=== PATIENT | male | born 1950 | race Caucasian/White ===

== ENCOUNTER 2016-09-22 13:40 | Inpatient (IN) | payer OTHER ==
[~2016-09-22] VITALS: Ht 175.3 cm; Wt 75.6 kg
--- NOTE | ~2016-09-22 | H ---
[facility] [place] [place] [address] HISTORY AND PHYSICAL Name: SANJAY MAN Room #: 212-P [facility] IN ..#: [id number] Admission: 09/22/16 Attend Phys: Timmy Parrish MD Discharge: 09/24/16 Date of : 50 Report #: [id number] THIS REPORT FOR: //name// CC: Dominique Parrish DATE OF SERVICE: 09/22/2016 REASON FOR ADMISSION: RV lead dislodgement. HISTORY OF PRESENT ILLNESS: This is a patient who underwent a dual chamber pacemaker implantation 2 days ago with a [employer] collar pointer. Yesterday, he was discharged after his device was found to be functioning normally. Last night, the patient felt somewhat lightheaded and he sent in a remote transmission which showed a decrease in the R waves on the RV lead suggested that there may have been a possible dislodgement. I brought him to my clinic and I checked the device and the threshold was very high suggested that somehow the lead had dislodged. PAST MEDICAL HISTORY: 1. History of carotid artery disease status post carotid endarterectomy. 2. Carotid hypersensitivity syndrome. 3. Mobitz II second degree heart block status post [employer]ume dual chamber pacemaker implantation 2 days ago. SOCIAL HISTORY: Does not smoke. FAMILY HISTORY: Noncontributory. ALLERGIES: None. MEDICATIONS: Have been reviewed. PHYSICAL EXAMINATION: VITAL SIGNS: Stable. GENERAL: He was in no acute distress. HEENT: Oropharynx is clear. NECK: Supple, no thyromegaly. HEART: Regular rate and rhythm with no murmurs, rubs, gallops. LUNGS: Clear to auscultation bilaterally. ABDOMEN: Soft, nontender, nondistended, no hepatosplenomegaly. EXTREMITIES: No clubbing, cyanosis, edema. His device interrogation revealed that he has loss of RV capture at a threshold of around 5 volts at 1.5 milliseconds[address] [facility] [address] [place] [address] HISTORY AND PHYSICAL Name: SANJAY MAN Room #: [facility].#: [id number] Admission: 09/22/16 Attend Phys: Timmy Parrish MD Discharge: 09/24/16 Date of : 50 Report #: [id number] ASSESSMENT AND PLAN: In summary, the patient is a gentleman status post recent pacemaker implantation. It appears that his RV lead has dislodged. As such, we will take him back to the EP laboratory to perform an RV lead revision. We discussed the details of the procedure including the risks, which include but not limited to bleeding, infection as well as vascular damage. I discussed that I would like to monitor him overnight and have him get some IV antibiotics. I did discuss I will put an antibiotic pouch in the pocket to prevent infections. If everything is okay, he can be discharged tomorrow. <ELECTRONICALLY SIGNED> By: Timmy Parrish MD 09/29/16 1348 [id number] 1715 Timmy Parrish MD /starr
--- NOTE | ~2016-09-22 | P ---
[facility] [place] [address] PROCEDURE REPORT Name: SANJAY MAN Room #: 212-P [facility] IN .R.#: [id number] Admission: 09/22/16 Attend Phys: Timmy Parrish MD Discharge: 09/24/16 Date of : 50 Report #: [id number] THIS REPORT FOR: //name// CC: Dominique Parrish PREOPERATIVE DIAGNOSIS: Right ventricular lead dislodgement. POSTOPERATIVE DIAGNOSIS: Right ventricular lead dislodgement. HISTORY: The patient is a 65-year-old status post pacemaker implantation for AV block who was noted on remote monitoring to have diminishment of his R waves. We had him come in to clinic and we saw that his threshold had risen and his R waves were significantly decreased. It appeared that he likely had a micro dislodgement of his RV lead. He is here for lead revision. ANESTHESIA: The patient underwent MAC anesthesia with no anesthesia related complications. DESCRIPTION OF PROCEDURE: The patient underwent informed consent. We discussed the details of the procedure including the risks, which include but not limited to bleeding, infection. He understood these risks and is willing to proceed. As such, he was brought to the EP laboratory in a fasting and sedated state, prepped and draped in a sterile fashion and received IV antibiotics. Next, I injected 10 mL of lidocaine at the prior incision site. The incision was opened and I removed all the prior sutures. I then disconnected the RV lead from the pacemaker and removed the sutures in suture sleeve and then placed a guidewire down the week. I then retracted the screw and then repositioned the lead. I at this time left a good amount of slack in the lead. I then sutured the lead to the prepectoral fascia. The R waves were greater than 12 with a pacing threshold of 0.5 volts at 0.4 milliseconds with pacing impedance of 630 ohms. The atrial lead pacing characteristics were stable. The pocket was then irrigated with vancomycin solution and a Medtronic antibiotic pouch was placed in the pocket to prevent infection given the reopening of the pocket. The pocket was then closed in 3 layers using 2-0 for the deep layer, 3-0 for the mid layer and 4-0 for the subcuticular layer. The patient awoke neurologically and hemodynamically intact with no complications. CONCLUSIONS: 1. Successful right ventricular lead revision with adequate pacing and sensing thresholds. 2. Implantation of a Medtronic antibiotic pouch in the pocket. [facility] [address] [place] [address] PROCEDURE REPORT Name: SANJAY MAN Room #: 212-P [facility] IN .R.#: [id number] Admission: 09/22/16 Attend Phys: Timmy Parrish MD Discharge: 09/24/16 Date of : 50 Report #: [id number] RECOMMENDATIONS: We will monitor the patient overnight and recheck thresholds in the morning. He will receive IV antibiotics overnight as well. <ELECTRONICALLY SIGNED> By: Timmy Parrish MD 10/02/16 1227 [id number] 1851 Timmy Parrish MD /nt
--- NOTE | ~2016-09-22 | D ---
[facility] [place] [address] DISCHARGE SUMMARY Name: SANJAY MAN Room #: 212-P [facility] IN .R.#: [id number] Admission: 09/22/16 Attend Phys: Timmy Parrish MD Discharge: 09/24/16 Date of : 50 Report #: [id number] THIS REPORT FOR: //name// CC: Dominique Parrish DATE OF SERVICE: 09/24/2016 ADMITTING DIAGNOSIS: Lead dislodgement. DISCHARGE DIAGNOSES: 1. Lead dislodgement. 2. Second-degree atrioventricular block. PROCEDURE PERFORMED: Repositioning of the right ventricular lead. DISCHARGE MEDICATIONS: Home medications. FOLLOWUP: Dr. Parrish on Sunday. DISCHARGE DIET: Heart healthy. BRIEF CLINICAL HISTORY: See history and physical on chart. HOSPITAL COURSE: The patient was admitted to the hospital and went back to the cardiac catheterization laboratory where the lead was repositioned under fluoroscopic guidance by Dr. Parrish. Postprocedure, the patient did quite well, but developed a yellow sputum and a cough. He was started on aztreonam which he tolerated well. He was observed 1 more day with improvement and symptomatology and feeling much better. Allowed to ambulate without limitations except for the left arm which was in an arm immobilizer secondary to the lead placement. Discharge instructions were given. The patient had subsequently been discharged in stable and improved condition, to follow up with the previously stated medications and appointments. <ELECTRONICALLY SIGNED> By: Tera Wright MD 09/24/16 2329 1638 49 Tera Wright MD /nt
[~2016-09-22 13:40] MED LIST: ASPIRIN325 PO; FISH OIL 1,001000 M2 PO; NAPROSYN500 MG PO; NEURONTIN 300300 M1 PO; NORVASC5 MG PO; ZOCOR20 MG PO
[2016-09-22 14:59] VITALS: BP 146/104
[2016-09-22 17:27] VITALS: BP 137/84
[2016-09-22 19:28] VITALS: BP 117/71
[2016-09-22 23:16] VITALS: BP 93/62
[2016-09-23 04:05] VITALS: BP 109/65
[2016-09-23 07:35] LABS: HEMATOCRIT 34.9 % (42.0-52.0); HEMOGLOBIN 11.9 gm/dL (14.0-18.0); MCH 29.9 pg (26.0-34.0); MCHC 34.1 % (28.0-37.0); MCV 87.6 fL (80.0-100.0); RBC 3.98 mil/uL (4.50-6.00); RDW 15.7 % (10.5-14.5); WBC 8.8 thou/uL (4.0-11.0)
[2016-09-23 07:41] VITALS: BP 109/65
[2016-09-23 07:45] LABS: CALCIUM 8.9 mg/dL (8.5-10.1); POTASSIUM 3.9 mmol/L (3.5-5.1)
[2016-09-23 08:11] VITALS: BP 120/81
[2016-09-23 12:25] VITALS: BP 121/82
[2016-09-23 20:00] VITALS: BP 130/81
[2016-09-24 05:32] VITALS: BP 146/93
[2016-09-24 07:15] VITALS: BP 109/65
[2016-09-24 08:31] VITALS: BP 129/85
[2016-09-24 11:51] VITALS: BP 135/86
[2016-09-24 14:42] VITALS: BP 135/86
== END 2016-09-24 14:57 | disposition home or self-care (01) | DRG 261 ==
LOC: 2N 13:40
PROVIDERS: Internal Medicine Cardiovascular Disease
PROC: 02WA3MZ Revision of Cardiac Lead in Heart, Percutaneous Approach (ICD-10-PCS; principal; 2016-09-24)
DX: I44.1 Atrioventricular block, second degree (principal); T82.120A Displacement of cardiac electrode, initial encounter; I25.10 Atherosclerotic heart disease of native coronary artery without angina pectoris; Z98.890 Other specified postprocedural states; Z95.0 Presence of cardiac pacemaker
CPT/HCPCS: 10081; 62110; 62900; 70005

== ENCOUNTER → 2020-06-08 | Outpatient (CLI) | payer OTHER | LOC: SJCVCIMAG 07:15 | PROVIDERS: ATTEND Internal Medicine Cardiovascular Disease | DX: Z45.018 Encounter for adjustment and management of other part of cardiac pacemaker (principal); I44.4 Left anterior fascicular block; I44.0 Atrioventricular block, first degree; R94.31 Abnormal electrocardiogram [ECG] [EKG]; I47.2 Ventricular tachycardia; I49.5 Sick sinus syndrome; R55 Syncope and collapse; I10 Essential (primary) hypertension; E78.00 Pure hypercholesterolemia, unspecified; Z79.82 Long term (current) use of aspirin; Z82.49 Family history of ischemic heart disease and other diseases of the circulatory system; Z79.899 Other long term (current) drug therapy; Z87.891 Personal history of nicotine dependence ==

== ENCOUNTER → 2020-06-24 | Outpatient (CLI) | payer OTHER | LOC: SJCVCIMAG 07:51 | PROVIDERS: ATTEND Internal Medicine Cardiovascular Disease | DX: Z45.018 Encounter for adjustment and management of other part of cardiac pacemaker (principal); I44.0 Atrioventricular block, first degree; I49.3 Ventricular premature depolarization; I49.5 Sick sinus syndrome; E78.00 Pure hypercholesterolemia, unspecified; I47.2 Ventricular tachycardia; I25.10 Atherosclerotic heart disease of native coronary artery without angina pectoris; I65.23 Occlusion and stenosis of bilateral carotid arteries; Z79.899 Other long term (current) drug therapy; Z87.891 Personal history of nicotine dependence ==

== ENCOUNTER 2020-09-27 10:15 | Emergency (ER) | payer OTHER ==
[~2020-09-27] VITALS: Ht 172.7 cm; Wt 79.4 kg
[2020-09-27] MEDS ORDERED: LIPITOR10 MG PO (10:27)
[2020-09-27 11:55] VITALS: BP 132/77
== END 2020-09-27 11:55 | disposition home or self-care (01) ==
LOC: ER 10:15
DX: M25.521 Pain in right elbow (principal); G89.29 Other chronic pain; M54.9 Dorsalgia, unspecified; I10 Essential (primary) hypertension; E78.5 Hyperlipidemia, unspecified; F17.210 Nicotine dependence, cigarettes, uncomplicated; Z79.82 Long term (current) use of aspirin; Z79.899 Other long term (current) drug therapy; W17.89XA Other fall from one level to another, initial encounter; Y93.89 Activity, other specified; Y92.89 Other specified places as the place of occurrence of the external cause; Y99.8 Other external cause status

== ENCOUNTER → 2021-07-01 | Outpatient (CLI) | payer OTHER ==
[~2021-07-01] MED LIST changes: +LIPITOR10 MG PO
== END ==
LOC: SJCVCIMAG 07:51
PROVIDERS: ATTEND Internal Medicine Cardiovascular Disease
DX: I65.23 Occlusion and stenosis of bilateral carotid arteries (principal); I25.10 Atherosclerotic heart disease of native coronary artery without angina pectoris; I49.5 Sick sinus syndrome; E78.5 Hyperlipidemia, unspecified; E78.00 Pure hypercholesterolemia, unspecified; I45.9 Conduction disorder, unspecified; I10 Essential (primary) hypertension; Z95.0 Presence of cardiac pacemaker; Z79.82 Long term (current) use of aspirin; Z79.899 Other long term (current) drug therapy; Z87.891 Personal history of nicotine dependence; Z72.89 Other problems related to lifestyle

== ENCOUNTER → 2021-09-05 | Outpatient (CLI) | payer OTHER | LOC: CAT 08:50 | PROVIDERS: ATTEND Family Medicine | DX: M54.41 Lumbago with sciatica, right side (principal); M48.07 Spinal stenosis, lumbosacral region; G89.29 Other chronic pain ==

== ENCOUNTER → 2021-09-29 | Outpatient (CLI) | payer OTHER ==
[~2021-09-29] VITALS: Ht 175.3 cm; Wt 78.9 kg
[~2021-09-29] MED LIST changes: +PERCOCET 7.5-31 EAC1 PO
[2021-09-29 10:48] VITALS: BP 137/84
--- NOTE | 2021-09-29 11:16 | NUR ---
Pain Clinic Assessment: 1. History of Osteoarthritis: History of Rheumatoid Arthritis: 2. Height: 5 ft. 9 in. 175.3 cm. Weight: 174.0 lb. oz. 78.926 kg. Patient's BMI: 25.7 3. Vital Signs: BP: 137/84 Pulse: 72 Resp: 18 Temp: 02 Sat: 100 ECG Mon: 4. Pain Intensity: 2 5. Fall Risk: Dizziness: N Needs help standing or walking: N Fallen in the last 3 months: N Fall risk comments: 6. Patient on Blood Thinner: None 7. History of Hypertension: Y 8. Opioid Therapy greater than 6 weeks: N Opiate Contract Signed: 9. Risk Assessment Tool Provided: 10. Functional Assessment Tool: 11. Recreational Drug Use: Past greater than 3 mos Drug Type: Tobacco Use: Former Smoker Tobacco Type: Amount or Packs/day: How Many Years: Alcohol Use: Yes Frequency: Weekly Quant: 3-4 DRINKS WEEKLY
== END ==
LOC: PAIN 09:06
PROVIDERS: ATTEND Anesthesiology Pain Medicine
DX: M47.26 Other spondylosis with radiculopathy, lumbar region (principal); M48.061 Spinal stenosis, lumbar region without neurogenic claudication; I10 Essential (primary) hypertension; Z87.891 Personal history of nicotine dependence; Z95.0 Presence of cardiac pacemaker

== ENCOUNTER → 2021-10-06 | Outpatient (CLI) | payer OTHER ==
[~2021-10-06] VITALS: Ht 175.3 cm; Wt 80.0 kg
[2021-10-06 14:27] VITALS: BP 129/74
--- NOTE | 2021-10-06 14:37 | NUR ---
Pain Clinic Assessment: 1. History of Osteoarthritis: History of Rheumatoid Arthritis: 2. Height: 5 ft. 9 in. 175.3 cm. Weight: 176.4 lb. oz. 80.015 kg. Patient's BMI: 26.0 3. Vital Signs: BP: 129/74 Pulse: 83 Resp: 14 Temp: 02 Sat: 100 ECG Mon: 4. Pain Intensity: 0 5. Fall Risk: Dizziness: N Needs help standing or walking: N Fallen in the last 3 months: N Fall risk comments: 6. Patient on Blood Thinner: None 7. History of Hypertension: Y 8. Opioid Therapy greater than 6 weeks: N Opiate Contract Signed: 9. Risk Assessment Tool Provided: 10. Functional Assessment Tool: 11. Recreational Drug Use: Past greater than 3 mos Drug Type: Tobacco Use: Current Every Day Smoker Tobacco Type: Cigarettes Amount or Packs/day: 4 ciggs How Many Years: Alcohol Use: Yes Frequency: Special Occasions Quant: 1
== END | disposition home or self-care (01) ==
LOC: PAIN 10:33
PROVIDERS: ATTEND Anesthesiology Pain Medicine
DX: M54.16 Radiculopathy, lumbar region (principal); G89.29 Other chronic pain; F17.210 Nicotine dependence, cigarettes, uncomplicated; Z98.890 Other specified postprocedural states; Z79.899 Other long term (current) drug therapy

== ENCOUNTER → 2021-10-31 | Outpatient (CLI) | payer OTHER ==
[~2021-10-31] VITALS: Ht 175.3 cm; Wt 80.2 kg
[2021-10-31 09:22] VITALS: BP 136/84
--- NOTE | 2021-10-31 09:33 | NUR ---
Pain Clinic Assessment: 1. History of Osteoarthritis: History of Rheumatoid Arthritis: 2. Height: 5 ft. 9 in. 175.3 cm. Weight: 176.8 lb. oz. 80.196 kg. Patient's BMI: 26.1 3. Vital Signs: BP: 136/84 Pulse: 73 Resp: 20 Temp: 02 Sat: 99 ECG Mon: 4. Pain Intensity: 0 5. Fall Risk: Dizziness: N Needs help standing or walking: N Fallen in the last 3 months: N Fall risk comments: 6. Patient on Blood Thinner: None 7. History of Hypertension: Y 8. Opioid Therapy greater than 6 weeks: N Opiate Contract Signed: 9. Risk Assessment Tool Provided: 0 LOW RISK 10. Functional Assessment Tool: 11. Recreational Drug Use: Past greater than 3 mos Drug Type: Tobacco Use: Current Every Day Smoker Tobacco Type: Amount or Packs/day: How Many Years: Alcohol Use: Yes Frequency: Quant:
== END ==
LOC: PAIN 07:02
PROVIDERS: ATTEND Anesthesiology Pain Medicine
DX: M47.26 Other spondylosis with radiculopathy, lumbar region (principal); Z79.899 Other long term (current) drug therapy